=== PATIENT | female | born 1955 | race Caucasian/White ===

== ENCOUNTER 2021-05-05 02:46 | Outpatient (CLI) | payer MEDICAID, SELFPAY ==
[2021-05-05 13:15] LABS: HCT 46.6 % (36.0-46.0); MCH 31.2 pg (27.0-33.0); MCHC 34.3 % (32.0-36.0); MCV 90.8 fL (80-95); MPV 10.3 fL (8.0-11.0); Platelet Count 274 10^3/uL (130-400); RBC 5.13 10^6/uL (3.93-5.22); RDW 12.5 % (11.7-14.6); RDW-SD 42.1 fL; WBC 8.19 10^3/uL (4.4-10.8)
[2021-05-05 13:23] LABS: ESR 6 mm/hr (0-30)
[2021-05-05 14:04] LABS: ALT 27 U/L (14-59); AST 13 U/L (15-37); Albumin 3.9 g/dL (3.4-5.0); Alkaline Phosphatase 165 U/L (46-116); BUN 8 mg/dL (7-18); Bilirubin, Total 0.8 mg/dL (0.2-1.0); CREATININE 0.9 mg/dL (0.55-1.02); Calcium 9.9 mg/dL (8.5-10.1); Chloride 108 mmol/L (98-107); Glucose 105 mg/dL (74-106); Sodium 144 mmol/L (136-145); Total Protein 7.3 g/dL (6.4-8.2)
== END 2021-05-05 02:47 | disposition home or self-care (01) ==
LOC: LBO 02:46
PROVIDERS: PCP Family Medicine; Visit Provider Family Medicine
DX: R53.83 Other fatigue (principal); R91.1 Solitary pulmonary nodule
CPT/HCPCS: 36415; 80053; 85027; 85652

== ENCOUNTER → 2021-08-11 01:18 | Outpatient (CLI) | payer MEDICARE, MEDICAID, SELFPAY ==
--- NOTE | 2021-08-11 | DI.US_ITS ---
Exam(s) US RENAL EXAM: US RENAL CLINICAL HISTORY: CHRONIC RT FLANK PAIN R10.9 G89.29 TECHNIQUE: Ultrasound of both kidneys performed using standard protocol. COMPARISON: No exams were available for comparison FINDINGS: RIGHT KIDNEY: Measures 10.7 cm in length. No cysts evident. Normal cortical thickness and corticomedullary differen tiation .No solid masses No intrarenal calculi nor hydronephrosis. LEFT KIDNEY: Measures 10.7 cm in length. No cysts evident. Normal cortical thickness and corticomedullary differe ntiaion. No solids masses. No intrarenal calculi nor hydonephrosis. URINARY BLADDER: Not prepped IMPRESSION: 1. No significant ultrasound findings in the kidneys. 2. No hydronephrosis. DATA REPOSITORY:
== END ==
PROVIDERS: PCP Family Medicine; Visit Provider Family Medicine
DX: R10.9 Unspecified abdominal pain (principal); G89.29 Other chronic pain
CPT/HCPCS: 76770

== ENCOUNTER 2021-09-22 01:56 | Outpatient (CLI) | payer MEDICARE, MEDICAID, SELFPAY ==
[2021-09-22 15:11] LABS: ESR 10 mm/hr (0-30)
[2021-09-23 17:46] LABS: Rheumatoid Factor <8.6 IU/mL (<12.0)
[2021-09-24 09:28] LABS: Cyclic Citrullinated Peptide <2.5 U/mL (<5.0)
[2021-09-24 10:53] LABS: Lyme Ab w Rflx to Lyme Confirm Negative (Negative)
[2021-09-24 12:05] LABS: ANA Interpretation Positive (Negative); ANA Titer Pattern 1:320 Homogeneous
== END 2021-09-22 01:57 | disposition home or self-care (01) ==
PROVIDERS: PCP Family Medicine; Visit Provider Family Medicine
DX: R10.9 Unspecified abdominal pain (principal); G89.29 Other chronic pain; R53.82 Chronic fatigue, unspecified
CPT/HCPCS: 36415; 85652; 86200; 86038; 86140; 86431; 86618

== ENCOUNTER → 2021-12-24 00:46 | Outpatient (CLI) | payer MEDICARE, MEDICAID, SELFPAY ==
--- NOTE | 2021-12-24 11:10 | DI.DEXA_ITS ---
Exam(s) XR DEXA BONE DENSITY W/WO DIVINE EXAM: XR DEXA BONE DENSITY W/WO DIVINE CLINICAL HISTORY: ASYMPTOMATIC MENOPAUSAL STATE, Z78.0 TECHNIQUE: [employer] C densitometer analysis of left hip and right forearm. The spine could not be analyzed due to the presence of spinal rods. COMPARISON: No exams were available for comparison FINDINGS: Bone mineral density measurements of the left hip correspond to a total T-score of - 0.4. The femo ral neck T-score is -0.5, in the normal range. . The right forearm bone mineral density measurements correspond to a T-score of the distal 3rd of -1. 1, in the mildly osteopenic range.. IMPRESSION: Normal bone mineral density of the left hip. Mild osteopenia of the right forearm.
== END ==
PROVIDERS: PCP Family Medicine; Visit Provider Family Medicine
DX: M85.88 Other specified disorders of bone density and structure, other site (principal); Z78.0 Asymptomatic menopausal state
CPT/HCPCS: 77080

== ENCOUNTER 2022-04-12 07:24 | Outpatient (REF) | payer MEDICARE, MEDICAID, SELFPAY ==
[2022-04-12 09:49] LABS: Bilirubin Negative (Negative); Blood Trace-intact (Negative); Clarity Clear (Clear); Glucose Negative (Negative); Ketones Negative (Negative); Leukocyte Esterase Small (Negative); Nitrite Negative (Negative); Specific Gravity <= 1.005 (1.005-1.025); Urobilinogen 0.2 EU/dL (Up TO 0.2)
== END 2022-04-12 07:25 | disposition home or self-care (01) ==
LOC: LBN 07:24
PROVIDERS: PCP Family Medicine; Visit Provider Nurse Practitioner Family
DX: R35.0 Frequency of micturition (principal)
CPT/HCPCS: 81003; 87086

== ENCOUNTER 2022-05-17 18:57 | Outpatient (REF) | payer MEDICARE, MEDICAID, SELFPAY ==
[2022-05-17 10:24] LABS: ALT 40 U/L (14-59); AST 34 U/L (15-37); Albumin 3.8 g/dL (3.4-5.0); Alkaline Phosphatase 142 U/L (46-116); Anion Gap 7.7 mmol/L (3-11); BUN 11 mg/dL (7-18); Bilirubin, Total 0.8 mg/dL (0.2-1.0); CO2 30.3 mmol/L (21.0-32.0); Calcium 9.1 mg/dL (8.5-10.1); Chloride 102 mmol/L (98-107); Estimated GFR 62.52 (mL/min/1.73m2); Glucose 96 mg/dL (74-106); Potassium 4.4 mmol/L (3.5-5.1); Sodium 140 mmol/L (136-145); Total Protein 7.2 g/dL (6.4-8.2)
== END 2022-05-17 18:58 | disposition home or self-care (01) ==
LOC: LBN 18:57
PROVIDERS: PCP Family Medicine; Visit Provider Nurse Practitioner Family
DX: U07.1 COVID-19 (principal)
CPT/HCPCS: 80053

== ENCOUNTER 2022-06-06 18:19 | Outpatient (REF) | payer MEDICARE, MEDICAID, SELFPAY ==
[2022-06-06 17:53] LABS: RBC 0-2 HPF (0-2)
[2022-06-06 17:54] LABS: Bacteria Rare HPF (Negative); C & S Indicated? C&S Done As Ordered; Casts Negative LPF (Negative); Crystals Negative HPF (Negative); Epithelial Cells Few HPF (Negative); Mucus Negative (Negative)
== END 2022-06-06 18:20 | disposition home or self-care (01) ==
LOC: LBN 18:19
PROVIDERS: PCP Family Medicine; Visit Provider Nurse Practitioner Family
DX: M54.9 Dorsalgia, unspecified (principal)
CPT/HCPCS: 81015; 87086

== ENCOUNTER 2023-05-20 10:10 | Emergency (ER) | payer MEDICARE, SELFPAY ==
[2023-05-20 10:32] VITALS: BP 154/77; PULSE 67; RESP 18; TEMP 36.6; O2SAT 95
--- NOTE | 2023-05-20 10:49 | ED.GENADUL_ITS ---
Discharge Plan Disposition Patient Disposition: Home Discharge Details Clinical Impression: COVID Primary Care Provider: Mikayla Win ED Provider: Brandon Lockhart Home Meds and New Rx's Prescriptions: Continued cyclobenzaprine 10 mg tablet Patient Comments: TAKE ONE TABLET BY MOUTH EVERY EVENING NEEDED FOR MUSCLE SPASMS atenolol 25 mg tablet epinephrine [EpiPen 2-Nixon] 0.3 mg/0.3 mL auto-injector Patient Comments: INJECT 0.3ML INTO THE MUSCLE NEEDED FOR FOR UP TO 1 DOSE albuterol sulfate 90 mcg/actuation HFA aerosol inhaler INHALATION fluticasone propionate 50 mcg/actuation spray,suspension INTRANASAL Patient Comments: SPRAY ONE SPRAY IN EACH NOSTRIL EVERY DAY Discharge Instructions Instructions: COVID-19 (Coronavirus Disease 2019) (ED) Additional Instructions: You may continue to take [id number]-[id number] medication as directed on packaging that matches your symptoms. If you do have any new or significant worsening of symptoms feel free to return the emergency department or follow-up with your primary care provider for reassessment as needed. During viral illness it is very important that you get plenty of rest, stay well-hydrated, and eat appropriate diet. Stand Alone Forms: Work Release Referrals: Mikayla Win [Primary Care Provider] - Discharge Data Discharge Date/Time-TO BE ENTERED AT DEPARTURE: 05/20/23 11:01 Medical Decision Making Patient presenting to the emergency department for chief complaint of cold symptoms and testing positive for COVID this morning. She states that symptoms started night with runny nose and has progressed to some sinus pressure, cough, subjective fever chills, protested emesis, malaise. She does report that she is unvaccinated but has had COVID in the past. Last year she did take the antiviral for COVID which caused rebound symptoms and significant diarrhea. Patient has past medical history of hypertension, pacemaker, fibromyalgia, hyperlipidemia. Physical exam is unremarkable for any severe illness, patient is nontoxic in appearance, stable vital signs with no respiratory distress, normal oxygen, no tachycardia. Physical exam is consistent with viral illness and patient did bring home COVID test for us to review and it was obviously positive. Given this did discuss with patient risk versus benefit of her taking antivirals again versus conservative jkwq-xvz-[id number] management. After full discussion with patient she stated that she would prefer not to take the antiviral and that she absolutely had to given the side effects she experienced last year. She states she prefers to use conservative management at this time and monitor symptoms. Given nonworrisome physical exam I do feel this is appropriate but patient was informed that she had 5 days to start this treatment if she changes her mind. After discussion of diagnosis and plan of care patient has no further needs, questions, or concerns and states clear understanding to return to the emergency department for any worsening symptoms. This documentation was generated using [employer]-BONEation system, please disregard any oddities of phrase or misspellings. HPI General Mode of arrival: ambulatory . Date/Time Provider Initiated Documentation: 05/20/23 10:12 . Limitations to Documentation: no limitations . Information obtained by: patient and RN notes reviewed . History of Present Illness 67 year old F presents to the emergency department with the chief complaint of Cold symptoms, COVID-positive, described as moderate and similar to prior episodes, Patient started experiencing this day(s) (2) and it has been constant. No relieving factors improve symptom(s), No exacerbating factors reported . Patient did receive the following treatments prior to arrival, other (Fpar-rao-ygujmlf meds) Related Data Home Medications Medication Instructions Recorded Confirmed albuterol sulfate 90 mcg/actuation inhalation 05/20/23 aerosol inhaler atenolol 25 mg tablet mg 05/20/23 cyclobenzaprine 10 mg tablet mg 05/20/23 epinephrine 0.3 mg/0.3 mL 05/20/23 injection, auto-injector (EpiPen 2-Nixon) fluticasone propionate 50 intranasal 05/20/23 mcg/actuation nasal spray,suspension Allergies Allergy/AdvReac Type Severity Reaction Status Date / Time latex Allergy Intermediate Unverified 05/20/23 10:40 lidocaine AdvReac Severe Other (See Unverified 05/20/23 10:40 Comment) peanut AdvReac Intermediate Unverified 05/20/23 10:40 General Stated Complaint: GenMedical MARGARET: 4 Review of Systems Constitutional Constitutional: Reports body ache(s), Reports chills, Reports fever(s), Reports headache(s) and Reports malaise Eyes Eyes: Denies eye discharge ENT Ears, Nose, Mouth, and Throat: Reports as per HPI, Denies ear discharge, Denies otalgia, Reports headache(s), Reports nasal congestion, Reports nasal discharge, Denies neck pain, Reports sinus pressure, Reports sore throat and Denies throat swelling Cardiovascular Cardiovascular: Denies chest pain and Denies dyspnea Respiratory Respiratory: Reports cough and Denies dyspnea Musculoskeletal Musculoskeletal: Denies joint swelling and Denies neck pain Integumentary/Breasts Skin/Breast: Denies rash Neurologic Neurologic: Reports headache(s) Allergic/Immunologic Allergic/Immunologic: Denies throat swelling PFSH All Active Problems (Updated 05/20/23 @ 10:57 by Brandon Lockhart NP) COVID (Acute) Fibromyalgia (Acute) IBS (irritable bowel syndrome) (Chronic) Hyperlipidemia (Acute) Hypertension (Chronic) Social History Smoking/Tobacco Use Status: Never Smoking risk assessment performed?: Yes Alcohol Intake: never Drug use: Never Substance use type: does not use Do you feel safe at home: Yes Do you feel safe in your relationship?: Yes Exam Const General: cooperative, comfortable and no acute distress Orientation: alert and awake HENMT Head: normal to inspection, normocephalic and atraumatic Ears: hearing grossly normal bilaterally and TM's normal bilaterally General nose exam: external nose normal Face and sinus: no erythema Mouth: oral mucosae normal, no drooling, no muffled voice and no trismus Throat: posterior oropharynx normal Neck Neck: normal visual inspection, full ROM, no lymphadenopathy, no meningeal signs, trachea midline and supple Resp Effort & Inspection: normal respiratory effort and able to speak in complete sentences Auscultation: clear to auscultation bilaterally Cardio Rate: regular rate Rhythm: regular rhythm Heart Sounds: S1 normal, S2 normal, normal S1 and S2, no click, no gallops, no murmurs and no rubs Skin General skin exam: no rashes or lesions noted and dry skin (warm) Neuro General: patient alert, patient awake, patient oriented x3, gait normal and moves all extremities Cognition: normal cognition Speech: speech normal Course Vital Signs Vital signs: Vital Signs Temperature 36.6 C 05/20/23 10:32 Pulse 67 05/20/23 10:32 Respiratory Rate 18 05/20/23 10:32 Blood Pressure 154/77 H 05/20/23 10:32 Pulse Oximetry 95 05/20/23 10:32 Temperature 36.6 C 05/20/23 10:32 Temperature Source Skin 05/20/23 10:32 Pulse 67 05/20/23 10:32 Respiratory Rate 18 05/20/23 10:32 Respiratory Effort Normal 05/20/23 10:37 Blood Pressure 154/77 H 05/20/23 10:32 Blood Pressure Position Sitting 05/20/23 10:32 Pulse Oximetry 95 05/20/23 10:32 Oxygen Delivery Method Room Air 05/20/23 10:32 Oxygen Flow Rate 0 05/20/23 10:32 Pain Level 7 05/20/23 10:32
[2023-05-20 10:57] VITALS: RESP 18
== END 2023-05-20 11:01 | disposition home or self-care (01) ==
PROVIDERS: Emergency Provider Nurse Practitioner Family; PCP Family Medicine
DX: U07.1 COVID-19 (principal); M79.7 Fibromyalgia
CPT/HCPCS: 99282; 99283

== ENCOUNTER 2024-01-04 05:10 | Outpatient (CLI) | payer MEDICARE, SELFPAY ==
[2024-01-04 12:50] LABS: Abs Immature Grans 0.04 10^3/uL (0.0-0.06); Absolute Basophil Count 0.04 10^3/uL (0.0-0.2); Absolute Eosinophil Count 0.48 10^3/uL (0.0-0.7); Absolute Lymphocyte Count 2.44 10^3/uL (1.2-3.4); Absolute Monocyte Count 0.42 10^3/uL (0.1-0.8); Basophils % 0.4 %; Eosinophils % 4.5 %; HCT 46.4 % (36.0-46.0); HGB 15.8 g/dL (11.2-15.7); Immature Grans % 0.4 %; Lymphocytes % 22.8 %; MCH 29.9 pg (27.0-33.0); MCHC 34.1 % (32.0-36.0); MCV 88 fL (80-95); Monocytes % 3.9 %; Platelet Count 290 10^3/uL (130-400); RBC 5.28 10^6/uL (3.93-5.22); WBC 10.72 10^3/uL (4.4-10.8)
[2024-01-04 13:28] LABS: ALT 22 U/L (14-59); AST 13 U/L (15-37); Albumin 3.6 g/dL (3.4-5.0); Alkaline Phosphatase 144 U/L (46-116); Anion Gap 5.8 mmol/L (3-11); BUN 10 mg/dL (7-18); Bilirubin, Total 0.5 mg/dL (0.2-1.0); CO2 33.2 mmol/L (21.0-32.0); CREATININE 0.9 mg/dL (0.55-1.02); Calcium 9.7 mg/dL (8.5-10.1); Chloride 102 mmol/L (98-107); Estimated GFR 70.07 (mL/min/1.73m2); Glucose 99 mg/dL (74-106); Sodium 141 mmol/L (136-145); TSH (W/Ref FT4) 1.35 uIU/mL (0.36-3.74); Total Protein 7.7 g/dL (6.4-8.2)
== END 2024-01-04 05:11 | disposition home or self-care (01) ==
PROVIDERS: PCP Family Medicine; Referring Provider Family Medicine; Visit Provider Family Medicine
DX: R19.7 Diarrhea, unspecified (principal)
CPT/HCPCS: 36415; 80053; 84443; 85025

== ENCOUNTER 2024-06-20 12:21 | Outpatient (CLI) | payer MEDICARE, SELFPAY ==
--- NOTE | 2024-06-20 | DI.RAD_ITS ---
Exam(s) XR HIP RT COMPLETE AP PELVIS EXAM: XR HIP RT COMPLETE AP PELVIS CLINICAL HISTORY: PAIN RT HIP M25.551 S/P FALL. TECHNIQUE: 2D digital imaging was performed. COMPARISON: No exams were available for comparison FINDINGS: Two views. No evidence of pelvic nor hip fracture. Multilevel fusion hardware in the lumbar spine is noted as a re fixation devices across the right sacroiliac joint. There are no hip fractures nor degenerative narrowing of the hip joints. Additional lateral view of the right hip does not reveal osteophytes nor hip joint space narrowing. There is no evidence of trang scular necrosis of the hips. IMPRESSION: No significant osseous findings in the hips.. DATA REPOSITORY: RADIATION DOSE DELIVERED:
== END 2024-06-20 12:41 ==
PROVIDERS: PCP Family Medicine; Visit Provider Nurse Practitioner Family
DX: M25.551 Pain in right hip (principal)
CPT/HCPCS: 73502